=== PATIENT | male | born 1960 | race Caucasian/White ===

== ENCOUNTER 2020-06-22 21:27 | Emergency (ER) | payer MEDICARE, OTHER ==
[~2020-06-22] VITALS: Ht 182.9 cm; Wt 122.5 kg
[2020-06-22 21:30] VITALS: BP 124/68
[2020-06-22] MEDS ORDERED: HYDR15CR41 TP (22:20)
[2020-06-22] MEDS ORDERED: OLANZAPINE 5 MG TABLET ONE (22:24)
[2020-06-22] MEDS ORDERED: OLANZAPINE 5 MG TABLET PO ONE (22:30)
--- NOTE | 2020-06-22 22:34 | NUR ---
Patient discharged to home in stable condition. Written and verbal after care instructions given. Patient verbalizes understanding of instruction. Pt ambulatory with a steady gait. Pt refused to sign homlesswaiver but received longterm resource
== END 2020-06-22 22:36 | disposition home or self-care (01) ==
LOC: ER 21:29
DX: R21 Rash and other nonspecific skin eruption (principal); F20.0 Paranoid schizophrenia; Z98.890 Other specified postprocedural states; Z79.899 Other long term (current) drug therapy

== ENCOUNTER 2021-04-29 10:54 | Emergency (ER) | payer MEDICARE, OTHER ==
[~2021-04-29] VITALS: Ht 182.9 cm; Wt 113.4 kg
[~2021-04-29 10:54] MED LIST: HYDR15CR41 TP
--- NOTE | 2021-04-29 11:36 | NUR ---
THE PATIENT IS PRESENTED TO ER FOR LEFT LEG PAIN / X 1 WEEK,CONCERNED FOR DVT. IN ROOM AIR AND DENIES SOB. RESPIRATION REGULAR AND UNLABORED. WILL CONTINUE TO MONITOR THE PATIENT.
[2021-04-29 12:11] LABS: BASOPHILS % (AUTO) 0.5 % (0.0-2.0); EOSINOPHILS % (AUTO) 2.6 % (0.0-6.0); HEMATOCRIT 44 % (39-51); HEMOGLOBIN 14.5 g/dL (13.5-17.5); LYMPHOCYTES # (AUTO) 1.9 K/uL (0.8-4.8); LYMPHOCYTES % (AUTO) 28.9 % (20.0-44.0); MEAN CORPUSCULAR HGB CONC 33 g/dl (31.0-36.0); MEAN CORPUSCULAR VOLUME 90 fL (80-96); MONOCYTES # (AUTO) 0.7 K/uL (0.1-1.30); MONOCYTES % (AUTO) 11.1 % (2.0-12.0); NEUTROPHILS # (AUTO) 3.8 K/uL (1.8-8.9); NEUTROPHILS % (AUTO) 56.9 % (43.0-81.0); PLATELET COUNT (AUTO) 231 K/uL (150-450); RED BLOOD CELL COUNT(AUTO) 4.89 MIL/uL (4.5-6.0); WHITE BLOOD COUNT (AUTO) 6.6 K/uL (4.3-11.0)
[2021-04-29 12:22] LABS: ALBUMIN 3.4 g/dL (3.4-5.0); BILIRUBIN,DIRECT 0.1 mg/dL (0.0-0.2); BILIRUBIN,TOTAL 0.2 mg/dL (0.2-1.0); CALCIUM, SERUM 8.8 mg/dL (8.5-10.1); CREATININE 0.7 mg/dL (0.6-1.3); POTASSIUM 3.9 mmol/L (3.5-5.1); TOTAL PROTEIN, SERUM 6.4 g/dL (6.4-8.2)
[2021-04-29] MEDS ORDERED: FURO-145 PO ×2 (12:46→13:14)
[2021-04-29] MEDS ORDERED: HYDR15CR41 TP (13:14)
--- NOTE | 2021-04-29 13:20 | NUR ---
Patient discharged to home in stable condition. Written and verbal after care instructions given. Patient verbalizes understanding of instruction.
[2021-04-29 13:21] VITALS: BP 121/76
== END 2021-04-29 13:22 | disposition home or self-care (01) ==
LOC: ER 10:58
DX: R60.0 Localized edema (principal); F20.0 Paranoid schizophrenia; F17.200 Nicotine dependence, unspecified, uncomplicated; Z98.890 Other specified postprocedural states; Z60.2 Problems related to living alone
CPT/HCPCS: 36415; 80048-TC; 80076-TC; 85025-TC; 93970-TC

== ENCOUNTER 2021-05-03 12:58 | Emergency (ER) | payer MEDICARE, OTHER ==
[~2021-05-03] VITALS: Ht 182.9 cm; Wt 113.4 kg
[~2021-05-03 12:58] MED LIST changes: +FURO-145 PO
--- NOTE | 2021-05-03 13:14 | NUR ---
TO ER BED 9, BIBS C/O ABDOMINAL DISCOMFORT, NAUSEA FEELING "FAINT" SINCE THIS MORNING, DENIES ANY PAIN OR SOB, AAOX3, BREATHING EVEN AND NON LABORED, AWAITING MD ORDERS
--- NOTE | 2021-05-03 13:35 | NUR ---
DR SCHULTZ AT BEDSIDE FOR EVAL.
[2021-05-03 14:20] LABS: CALCIUM, SERUM 8.3 mg/dL (8.5-10.1); CREATININE 0.7 mg/dL (0.6-1.3); POTASSIUM 3.5 mmol/L (3.5-5.1)
[2021-05-03 14:26] LABS: BILIRUBIN,DIRECT 0.1 mg/dL (0.0-0.2); BILIRUBIN,TOTAL 0.3 mg/dL (0.2-1.0); TOTAL PROTEIN, SERUM 6.1 g/dL (6.4-8.2)
[2021-05-03 14:34] LABS: BASOPHILS % (AUTO) 0.5 % (0.0-2.0); EOSINOPHILS % (AUTO) 1.1 % (0.0-6.0); HEMATOCRIT 43 % (39-51); HEMOGLOBIN 14.7 g/dL (13.5-17.5); LYMPHOCYTES % (AUTO) 24.6 % (20.0-44.0); MEAN CORPUSCULAR HGB CONC 34 g/dl (31.0-36.0); MEAN CORPUSCULAR VOLUME 90 fL (80-96); MONOCYTES # (AUTO) 0.8 K/uL (0.1-1.30); NEUTROPHILS # (AUTO) 5.1 K/uL (1.8-8.9); NEUTROPHILS % (AUTO) 63.8 % (43.0-81.0); PLATELET COUNT (AUTO) 175 K/uL (150-450); RED BLOOD CELL COUNT(AUTO) 4.83 MIL/uL (4.5-6.0)
[2021-05-03 14:47] LABS: BILIRUBIN,URINE NEGATIVE (NEGATIVE); COLOR,URINE YELLOW (YELLOW); LEUKOCYTE ESTERASE ,URINE NEGATIVE (NEGATIVE); NITRITE, URINE NEGATIVE (NEGATIVE); PROTEIN,URINE NEGATIVE (NEGATIVE); UGLUCOSE NEGATIVE (NEGATIVE); UROBILINOGEN,URINE 0.2 EU/dL (0.2)
[2021-05-03 14:59] LABS: BACTERIA,URINE None seen /HPF (None Seen); RBC,URINE 0-2 /HPF (0-2); SQUAMOUS EPITHELIAL CELL,UR 0-2 /HPF (None Seen); WBC,URINE 0-2 /HPF (0-3)
[2021-05-03] MEDS ORDERED: ONDANSETRON HCL/PF 4 MG/2 ML VIAL IV ONE (15:00)
[2021-05-03] MEDS ORDERED: MORPHINE SULFATE INJ 2 MG/ML DISP.SYRIN IV ONE (15:00)
[2021-05-03] MEDS ORDERED: ONDANSETRON HCL/PF 4 MG/2 ML VIAL ONE (15:04)
[2021-05-03] MEDS ORDERED: MORPHINE SULFATE INJ 4 MG/ML DISP.SYRIN ONE (15:04)
[2021-05-03] MEDS ORDERED: IV NS 0.9% 250 ML IV ONE (15:11)
[2021-05-03] MEDS ORDERED: IOHEXOL-300 100 ML VIAL IV ONE (15:11)
[2021-05-03] MEDS ORDERED: CT SWABBABLE VALVE TRANS SET 1 EA INFUS.SET MC ONE (15:12)
[2021-05-03] MEDS ORDERED: ONDA4TAB5 PO (16:06)
[2021-05-03] MEDS ORDERED: HYDR-4303 PO (16:06)
--- NOTE | 2021-05-03 16:53 | NUR ---
Patient discharged to home in stable condition. Written and verbal after care instructions given. Patient verbalizes understanding of instruction.IV removed. Catheter intact and site benign. Pressure and 4x4 applied to site. No bleeding noted.
[2021-05-03 16:54] VITALS: BP 125/84
== END 2021-05-03 16:54 | disposition home or self-care (01) ==
LOC: ER 13:01
DX: R10.9 Unspecified abdominal pain (principal); F20.9 Schizophrenia, unspecified; E66.01 Morbid (severe) obesity due to excess calories; F17.200 Nicotine dependence, unspecified, uncomplicated; Z90.49 Acquired absence of other specified parts of digestive tract; Z87.710 Personal history of (corrected) hypospadias; Z79.52 Long term (current) use of systemic steroids; Z79.01 Long term (current) use of anticoagulants; Z68.33 Body mass index [BMI] 33.0-33.9, adult; Z60.2 Problems related to living alone
CPT/HCPCS: 36415; 74177; 80048; 80076; 81001; 83690; 85025; 96374; 96375; 99285; 99406; J2270; J2405; J7050; Q9967

== ENCOUNTER 2021-09-21 07:08 | Emergency (ER) | payer MEDICARE, OTHER ==
[~2021-09-21] VITALS: Ht 182.9 cm; Wt 117.9 kg
[~2021-09-21 07:08] MED LIST changes: +HYDR-4303 PO; +ONDA4TAB5 PO
[2021-09-21 07:29] VITALS: BP 133/89
--- NOTE | 2021-09-21 07:33 | NUR ---
BIBS W/ C/O GROIN/INNER THIGH PAIN X4 DAYS. DENIES ANY RECENT INJURY. A/O X4, AMBULATORY.
[2021-09-21] MEDS ORDERED: ACET325T53 PO ×2 (07:51→08:08)
--- NOTE | 2021-09-21 08:34 | NUR ---
Patient discharged to home in stable condition. Written and verbal after care instructions given. Patient verbalizes understanding of instruction.
== END 2021-09-21 08:10 | disposition home or self-care (01) ==
LOC: ER 07:21
DX: M79.605 Pain in left leg (principal); M79.604 Pain in right leg; F20.0 Paranoid schizophrenia; F17.200 Nicotine dependence, unspecified, uncomplicated; Z60.2 Problems related to living alone; Z79.899 Other long term (current) drug therapy